=== PATIENT | male | born 1990 | race Hispanic/Latino ===

== ENCOUNTER 2017-11-13 13:36 | Day surgery (SDC) | payer BC ==
--- NOTE | 2017-11-13 15:28 | CT ---
Date of service: 11/13/2017 PROCEDURE: CT Chest, Abdomen and Pelvis without intravenous contrast HISTORY: swallowed a plastic pen cap COMPARISON: None available. TECHNIQUE: Radiation dose: Total exam DLP = 379 mGy-cm. This CT exam was performed using one or more of the following dose reduction techniques: Automated exposure control, adjustment of the mA and/or kV according to patient size, and/or use of iterative reconstruction technique. FINDINGS: CT CHEST WITHOUT CONTRAST: LUNGS: Clear. No nodule, mass or consolidation. MEDIASTINUM: Unremarkable. Normal caliber aorta and pulmonary arterial trunk. Normal size heart. LYMPH NODES: Unremarkable. PLEURA: Unremarkable. No pneumothorax. No pleural fluid. BONES: Unremarkable. OTHER FINDINGS: None. CT ABDOMEN AND PELVIS: LIVER: Unremarkable. No gross lesion or ductal dilatation. GALLBLADDER AND BILE DUCTS: Unremarkable. PANCREAS: Unremarkable. No gross lesion or ductal dilatation. SPLEEN: Unremarkable. ADRENALS: Unremarkable. No mass. KIDNEYS AND URETERS: Stones are seen in the right mid ureter measuring 14 mm in length and 5 mm diameter. These appear to be 2 separate stones . There is mild hydronephrosis VASCULATURE: Unremarkable. No aortic aneurysm. BOWEL: Unremarkable. No obstruction. No gross mural thickening. The foreign body is visible in the stomach in the shape of a plastic pen cap APPENDIX: Normal appendix. PERITONEUM: Unremarkable. No free fluid. No free air. LYMPH NODES: Unremarkable. No enlarged lymph nodes. BLADDER: Unremarkable. REPRODUCTIVE: Unremarkable. BONES: No acute fracture. OTHER FINDINGS: Findings were discussed with Mary gonzalez at 3:20 p.m. IMPRESSION: Foreign body visible the stomach in the shape of a plastic pen cap. Stones in the right mid ureter with mild hydronephrosis
[2017-11-13] MEDS ORDERED: Sodium Chloride 0.9% 1,000 ML IV STA (15:52)
[2017-11-13 16:32] LABS: BASO # 0.05 K/mm3 (0.0-2.0); EOS # 0.4 (0.0-0.7); EOS % 8.8 % (1.5-5.0); GRAN # 2.99 (1.4-6.5); GRAN % 62.3 % (50.0-68.0); HEMOGLOBIN 15.9 g/dL (14.0-18.0); LYMPH # 1.1 (1.2-3.4); LYMPH % 22.1 % (22.0-35.0); MEAN CELL VOLUME 84.4 fl (80.0-105.0); MEAN CORPUSCULAR HEMOGLOBIN 30.3 pg (25.0-35.0); MEAN PLATELET VOLUME 8.2 fl (7.0-11.0); MONO # 0.3 (0.1-0.6); MONO % 5.8 % (1.0-6.0); RBC 5.24 10^6/uL (3.5-6.1); RED CELL DISTRIBUTION WIDTH 12.3 % (11.5-14.5); WHITE BLOOD COUNT 4.8 10^3/ul (4.5-11.0)
[2017-11-13 16:39] LABS: ALB/GLOB RATIO 1.5 (1.1-1.8); ALBUMIN 4.6 g/dL (3.0-4.8); ALT/SGPT 54 U/L (7-56); AST/SGOT 43 U/L (17-59); BLOOD UREA NITROGEN 16 mg/dL (7-21); CALCIUM 9.5 mg/dL (8.4-10.5); GFR NON-AFRICAN AMERICAN > 60; LIPASE 121 U/L (23-300)
[2017-11-13 16:42] LABS: PH,URINE 8.5 (4.7-8.0); URINE APPEARANCE CLEAR (CLEAR); URINE BILIRUBIN NEGATIVE (NEGATIVE); URINE BLOOD TRACE-LYSED (NEGATIVE); URINE COLOR YELLOW (YELLOW); URINE GLUCOSE (UA) NEGATIVE (NEGATIVE); URINE LEUKOCYTE ESTERASE NEGATIVE Leu/uL (NEGATIVE); URINE PROTEIN NEGATIVE mg/dL (<30 mg/dL); URINE UROBILINOGEN 0.2 E.U./dL (<1 E.U./dL)
[2017-11-13 16:50] LABS: URINE RBC 0 - 2 /hpf (0-2)
--- NOTE | 2017-11-13 18:14 | ED PDOC ---
Arrival/HPI - General Historian: Patient, Parent - History of Present Illness Time/Duration: 1 hour <Mary Crespo - Last Filed: 11/13/17 23:06> <Rico Walter - Last Filed: 11/15/17 08:03> - General Chief Complaint: GI Problem Time Seen by Provider: 11/13/17 13:51 - History of Present Illness Narrative History of Present Illness (Text): 11/13/17 18:06 27-year-old male with a history of OCD presents today with concerns for swallowing a pen cap. Patient states that he was trying to see if he could swallow the. Patient states when he gets very anxious he tries to do different things to calm him and today he wanted to try to swallow pain. Patient denies any pain in the throat. He denies abdominal pain. Denies nausea vomiting diarrhea or constipation. Patient denies chest pain or shortness of breath. Patient denies feeling of throat closing. Patient denies fevers or chills. No urinary symptoms. No other complaints (Mary Crespo) Past Medical History - Provider Review Nursing Documentation Reviewed: Yes - Travel History Have you recently traveled outside [place] w/in the past 3 mons?: No - Infectious Disease Hx of Infectious Diseases: None - Cardiac Hx Cardiac Disorders: No - Pulmonary Hx Respiratory Disorders: No - Neurological Hx Neurological Disorder: No - HEENT Hx HEENT Disorder: No - Endocrine/Metabolic Hx Endocrine Disorders: No - Integumentary Hx Dermatological Disorder: No - Musculoskeletal/Rheumatological Hx Musculoskeletal Disorders: No - Gastrointestinal Hx Gastrointestinal Disorders: No - Genitourinary/Gynecological Hx Genitourinary Disorders: No - Psychiatric Hx Substance Use: No Other/Comment: ocd, - Anesthesia Hx Anesthesia: No <Mary Crespo - Last Filed: 11/13/17 23:06> Family/Social History - Physician Review Nursing Documentation Reviewed: Yes Family/Social History: Unknown Family HX Smoking Status: Unknown If Ever Smoked Hx Alcohol Use: No Hx Substance Use: No <Mary Crespo - Last Filed: 11/13/17 23:06> Allergies/Home Meds <Mary Crespo - Last Filed: 11/13/17 23:06> <Rico Walter - Last Filed: 11/15/17 08:03> Allergies/Adverse Reactions: Allergies seasona Allergy (Uncoded 11/13/17 14:13) CONGESTION Home Medications: Home Meds Medication Instructions Recorded Confirmed fluvoxaMINE [Fluvoxamine Maleate] 100 mg PO DAILY 11/13/17 11/13/17 Review of Systems - Review of Systems Constitutional: absent: Fatigue, Fevers Respiratory: absent: SOB, Cough Cardiovascular: absent: Chest Pain, Palpitations Gastrointestinal: absent: Abdominal Pain, Constipation, Diarrhea, Nausea, Vomiting Genitourinary Male: absent: Dysuria, Frequency, Hematuria Musculoskeletal: absent: Arthralgias, Back Pain, Neck Pain Skin: absent: Rash, Pruritis Neurological: absent: Headache, Dizziness Psychiatric: Anxiety. absent: Depression, Suicidal Ideation <Mary Crespo T - Last Filed: 11/13/17 23:06> Physical Exam Vital Signs Reviewed: Yes Temperature: Afebrile Blood Pressure: Normal Pulse: Tachycardic Respiratory Rate: Normal Appearance: Positive for: Well-Appearing, Non-Toxic, Comfortable Pain Distress: None Mental Status: Positive for: Alert and Oriented X 3, other (anxious) - Systems Exam Head: Present: Atraumatic Mouth: Present: Moist Mucous Membranes Neck: Present: Normal Range of Motion Respiratory/Chest: Present: Clear to Auscultation, Good Air Exchange. No: Respiratory Distress, Accessory Muscle Use Cardiovascular: Present: Regular Rate and Rhythm, Normal S1, S2. No: Murmurs Abdomen: Present: Normal Bowel Sounds. No: Tenderness, Distention, Rebound, Guarding Back: Present: Normal Inspection. No: CVA Tenderness, Midline Tenderness, Paraspinal Tenderness Upper Extremity: Present: Normal ROM Lower Extremity: Present: Normal ROM Neurological: Present: GCS=15, Speech Normal Skin: Present: Warm, Dry, Normal Color. No: Rashes Psychiatric: Present: Alert, Oriented x 3 <Mary Crespo T - Last Filed: 11/13/17 23:06> Vital Signs Temp Pulse Resp BP Pulse Ox 11/13/17 19:35 86 18 128/65 98 11/13/17 17:24 91 H 18 132/69 98 11/13/17 16:48 98 H 18 135/74 98 11/13/17 14:06 98.5 F 115 H 18 138/89 98 11/13/17 14:01 98.5 F 115 H 18 138/89 98 Medical Decision Making <Mary Crespo - Last Filed: 11/13/17 23:06> <Rico Walter - Last Filed: 11/15/17 08:03> ED Course and Treatment: 11/13/17 18:14 27yr old male presents today after FB ingestion. pt non toxic well appearing; no distress. stable vitals. CT chest/abd/pelvis; FINDINGS: CT CHEST WITHOUT CONTRAST: LUNGS: Clear. No nodule, mass or consolidation. MEDIASTINUM: Unremarkable. Normal caliber aorta and pulmonary arterial trunk. Normal size heart. LYMPH NODES: Unremarkable. PLEURA: Unremarkable. No pneumothorax. No pleural fluid. BONES: Unremarkable. OTHER FINDINGS: None. CT ABDOMEN AND PELVIS: LIVER: Unremarkable. No gross lesion or ductal dilatation. GALLBLADDER AND BILE DUCTS: Unremarkable. PANCREAS: Unremarkable. No gross lesion or ductal dilatation. SPLEEN: Unremarkable. ADRENALS: Unremarkable. No mass. KIDNEYS AND URETERS: Stones are seen in the right mid ureter measuring 14 mm in length and 5 mm diameter. These appear to be 2 separate stones . There is mild hydronephrosis VASCULATURE: Unremarkable. No aortic aneurysm. BOWEL: Unremarkable. No obstruction. No gross mural thickening. The foreign body is visible in the stomach in the shape of a plastic pen cap APPENDIX: Normal appendix. PERITONEUM: Unremarkable. No free fluid. No free air. LYMPH NODES: Unremarkable. No enlarged lymph nodes. BLADDER: Unremarkable. REPRODUCTIVE: Unremarkable. BONES: No acute fracture. OTHER FINDINGS: Findings were discussed with Mary as a via at 3:20 p.m. IMPRESSION: Foreign body visible the stomach in the shape of a plastic pen cap. Stones in the right mid ureter with mild hydronephrosis cbc; wnl cmp; wnl UA; + blood case was discussed with Dr. Nelson (GI enterprise application architect); he advised no intervention as pen cap should pass. when i discussed the case with the patient's father, he states that his brother is a commercial baking teacher and he believes that the foreign body should be removed. I called and spoke with the patient's primary care physician Dr. Cope; he advised utilizing Dr. Olmedo commercial baking teacher for second opinion. I spoke with Dr. Olmedo in depth; he believes the patient should have endoscopy to remove foreign body. i also spoke with dr. Susy weeks regarding the large stones in the right ureter with hydronephrosis; he advised KUB with obliques and f/u in the office. all results and plan discussed with patient and father at beside. i spoke with dr. cope again and advised him that the patient will go to same day surgery. impression; foreign body ingestion, nephrolithiasis, hydronephrosis Admitted to same day surgery. (Mary Crespo) - Lab Interpretations Microbiology Results: Microbiology Results 11/13/17 16:25 Urine Urine Culture - Final No Growth (<1,000 CFU/ML) Lab Results: 11/13/17 16:19 11/13/17 16:19 Lab Results 11/13/17 20:02: Blood Type Confirm B POSITIVE 11/13/17 19:15: Blood Type B POSITIVE, Antibody Screen Negative, BBK History Checked No verified bt 11/13/17 19:06: PT 12.2, INR 1.07, APTT 33.8 11/13/17 16:25: Urine Color Yellow, Urine Appearance Clear, Urine pH 8.5, Ur Specific [place] 1.015, Urine Protein Negative, Urine Glucose (UA) Negative, Urine Ketones Negative, Urine Blood Trace-lysed H, Urine Nitrate Negative, Urine Bilirubin Negative, Urine Urobilinogen 0.2, Ur Leukocyte Esterase Negative , Urine RBC 0 - 2, Urine WBC 2 - 5 11/13/17 16:19: WBC 4.8, RBC 5.24, Hgb 15.9, Hct 44.2, MCV 84.4, MCH 30.3, MCHC 36.0, RDW 12.3, Plt Count 191, MPV 8.2, Gran % 62.3, Lymph % (Auto) 22.1, [place] % (Auto) 5.8, Eos % (Auto) 8.8 H, Baso % (Auto) 1.0, Gran # 2.99, Lymph # (Auto ) 1.1 L, [place] # (Auto) 0.3, Eos # (Auto) 0.4, Baso # (Auto) 0.05 11/13/17 16:19: Sodium 144, Potassium 4.4, Chloride 102, Carbon Dioxide 29, Anion Gap 17, BUN 16, Creatinine 1.0, Est GFR ( Amer) > 60, Est GFR (Non- Af Amer) > 60, Random Glucose 102, Calcium 9.5, Total Bilirubin 0.5, AST 43, ALT 54, Alkaline Phosphatase 77, Total Protein 7.6, Albumin 4.6, Globulin 3.0, Albumin/Globulin Ratio 1.5, Lipase 121 - RAD Interpretation Radiology Orders: 11/13/17 14:21 CHEST,ABDOMEN, PELVIS W/O CONT [CT] Stat 11/13/17 17:24 ABDOMEN MULTIPLE VIEW (w/OBL) [RAD] Stat - Medication Orders Current Medication Orders: Discontinued Medications Sodium Chloride (Sodium Chloride 0.9%) 1,000 mls @ 999 mls/hr IV .Q1H1M STA Stop: 11/13/17 16:52 Last Admin: 11/13/17 16:08 Dose: 999 mls/hr eMAR Start Stop Document 11/13/17 16:08 LA (Rec: 11/13/17 16:08 LA [id number]) Intravenous Solution Start Date 11/13/17 Start Time 16:08 End Date 11/13/17 End time 17:09 Total Infusion Time 61 Sodium Chloride (Sodium Chloride 0.9%) 1,000 mls @ 100 mls/hr IV .Q10H ELDER - PA / CLINICAL COUNSELOR / Resident Statement / has reviewed & agrees with the documentation as recorded. / has examined the patient and agrees with the treatment plan. <Rico Walter - Last Filed: 11/15/17 08:03> Disposition/Present on Arrival - Present on Arrival Any Indicators Present on Arrival: No History of DVT/PE: No History of Uncontrolled Diabetes: No Urinary Catheter: No History of Decub. Ulcer: No History Surgical Site Infection Following: None - Disposition Have Diagnosis and Disposition been Completed?: Yes Disposition Time: 18:28 Patient Plan: Admission (SAME DAY SURGERY - Endoscopy) <Mary Crespo - Last Filed: 11/13/17 23:06> <Rico Walter - Last Filed: 11/15/17 08:03> - Disposition Diagnosis: Foreign body ingestion, Nephrolithiasis, Hydronephrosis Disposition: HOSPITALIZED Condition: FAIR
[2017-11-13 19:17] LABS: INR 1.07; PARTIAL THROMBOPLASTIN TIME 33.8 Seconds (25.1-36.5); PROTHROMBIN TIME 12.2 SECONDS (9.4-12.5)
[2017-11-13] MEDS ORDERED: Succinylcholine 200 mg/10 ml Inj IV ONE (20:06)
[2017-11-13] MEDS ORDERED: Propofol 10 mg/ml Inj (20 ML) ONE (20:06)
[2017-11-13] MEDS ORDERED: Sodium Chloride 0.9% 1,000 ML IV SCH (20:30)
[2017-11-13 22:04] VITALS: BP 118/82; PULSE 87; RESP 19; TEMP 97.9; O2SAT 99
--- NOTE | 2017-11-14 02:22 | PN ---
Copied To: Shani Olmedo MD Attending MD: Shnai Olmedo MD DATE: 11/13/2017 SUBJECTIVE: This patient had an upper GI endoscopy done under general anesthesia in the OR. The patient was found to have a pen cap in the body of the stomach. There were some erosions and some small superficial ulceration noticed in the fundus, probably caused by the pen cap sharper end. The cap was removed by the snare easily. The patient tolerated the procedure. The patient was subsequently transferred to the recovery room; from there, the patient was transferred back to the ER. ASSESSMENT AND PLAN: Discussed with the ER regarding the post procedure findings. The patient will be discharged his home with the proton pump inhibitors for 20 mg of Protonix for 4 weeks. The patient was advised to follow up with the primary physician and follow up with GI on a p.r.n. basis. The patient was advised to have a liquid diet today and the patient can be increased to soft diet in the a.m. Thank you very much for allowing us to participate in the care of the patient. Shani Olmedo MD
--- NOTE | 2017-11-14 07:08 | CON ---
Copied To: Shani Olmedo MD Attending MD: Shani Olmedo MD DATE: 11/13/2017 REASON FOR CONSULTATION: Foreign body in the stomach. HISTORY OF PRESENT ILLNESS: This is a 27-year-old patient with a past medical history of OCD, was brought to the hospital after the patient was found to have swallowed a pen cap. Patient denies any abdominal pain. No vomiting. No previous GI problems. Patient did have CT of the chest, abdomen and pelvis done in the ER which was reviewed, found to have the foreign body in the stomach. He is also found to have stone in the right mid ureter. Patient denies any abdominal pain. OTHER PAST MEDICAL HISTORY: Significant as above. FAMILY HISTORY: Noncontributory. ALLERGIES: SEASONAL ALLERGY. SOCIAL HISTORY: Denies smoking, no alcohol. REVIEW OF SYSTEMS: Positive as above. Other systems reviewed. PHYSICAL EXAMINATION: GENERAL: Patient is lying on the bed, not in acute distress. VITAL SIGNS: He is afebrile. Blood pressure 132/69, respirations 18, O2 saturations 98%. HEENT: Atraumatic, anicteric. NECK: Supple. HEART: S1 and S2 heard. LUNGS: Bilateral air entry present. ABDOMEN: Soft, there is no tenderness. EXTREMITIES: No edema, no cyanosis. NEUROLOGIC: Alert, oriented, moves all the extremities. LABORATORY DATA: Hemoglobin 15.9, hematocrit 44.2, WBC 4.8, platelets . Chemistries essentially unremarkable. CT scan of the abdomen and pelvis, findings as above, foreign body in the stomach, there is a right mid ureter calculus seen. IMPRESSION: There is a foreign body in the stomach, pen cap, large. PLAN: Discussed with patient's father who was at bedside and also with the patient. Informed consent was obtained endoscopic removal of this foreign body. Patient's ASA risk category is II-E and MP score 1. Thank you very much Dr. Casanova for allowing us to participate in the care of the patient. Shani Olmedo MD
--- NOTE | 2017-11-14 08:13 | RAD ---
Date of service: 11/13/2017 HISTORY: per dr. weeks; right sided stone COMPARISON: CT scan performed earlier the same day FINDINGS: This examination is limited due to large amount of stool in the colon. Allowing for this, there are 3 calcifications in a linear configuration in the right paravertebral region at the level of L3, the largest measures 5 mm. BOWEL: Large amount of stool in the colon. The bowel gas pattern is nonobstructive. BONES: Normal. OTHER FINDINGS: None. IMPRESSION: Three calcifications in linear configuration the right paravertebral region at the level of L3 vertebral body, the largest measures 5 mm compatible with mid ureteral stones. Severe constipation.
== END 2017-11-13 22:29 | disposition home or self-care (01) ==
LOC: ED 13:36 → ENDO 19:00 → 3RNO 21:52 → ENDO 22:29
PROVIDERS: ATTEND Internal Medicine Gastroenterology
DX: T18.2XXA Foreign body in stomach, initial encounter (principal); N13.2 Hydronephrosis with renal and ureteral calculous obstruction; F42.9 Obsessive-compulsive disorder, unspecified; K25.9 Gastric ulcer, unspecified as acute or chronic, without hemorrhage or perforation; X58.XXXA Exposure to other specified factors, initial encounter
CPT/HCPCS: 43247; 71250; 74022; 74176; 80053; 81001; 83690; 85025; 85610; 85730; 86850; 86900; 87086; 96360; 99285; J0330; J2001; J2704; J7030